=== PATIENT | female | born 1940 | race Caucasian/White ===

== ENCOUNTER 2017-10-20 16:35 | Emergency (ER) | payer MEDICARE, OTHER ==
[~2017-10-20] VITALS: Ht 157.5 cm; Wt 74.8 kg
[2017-10-20] MEDS ORDERED: PRAVASTATIN20 MG PO (17:29)
[2017-10-20] MEDS ORDERED: LEVOTHYROXIN125 MCG PO (17:29)
[2017-10-20] MEDS ORDERED: PRIMIDONE50 MG PO (17:29)
[2017-10-20] MEDS ORDERED: SERTRALINE HCL50 MG PO (17:30)
[2017-10-20] MEDS ORDERED: ZESTRIL40 MG PO (17:30)
[2017-10-20] MEDS ORDERED: FLOVENT DI50 MCG/BLI (17:32)
[2017-10-20] MEDS ORDERED: CLEAR EYE1 (17:33)
[2017-10-20 17:55] LABS: HEMATOCRIT 42.2 % (37.0-47.0); HEMOGLOBIN 13.6 g/dl (12.0-16.0); IMMATURE GRANULOCYTES 0.3 % (0.0-1.0); MEAN CELL VOLUME 91.9 fL CALC (80.0-100.0); MEAN CORPUSCULAR HGB 29.6 pG CALC (26.0-32.0); MEAN CORPUSCULAR HGB CONC 32.2 g/L CALC (32.0-36.0); NEUT# 3.49 thou/uL (2.00-7.15); RED BLOOD COUNT 4.59 mill/uL (4.20-5.60); RED CELL DISTRI WIDTH 14.2 % (11.5-15.5)
[2017-10-20 18:00] LABS: ALBUMIN 4.5 g/dL (3.2-5.0); BILIRUBIN, TOTAL 0.4 mg/dL (0.0-1.4); CREATININE 1.1 mg/dL (0.5-1.0); POTASSIUM 4.6 mmol/l (3.5-5.1); TOTAL PROTEIN 7.6 g/dL (6.3-8.2)
[2017-10-20 18:04] LABS: URINE BILIRUBIN - DIPSTICK NEGATIVE (NEGATIVE); URINE BLOOD DIPSTICK NEGATIVE (NEGATIVE); URINE COLOR YELLOW; URINE GLUCOSE - DIPSTICK NEGATIVE (NEGATIVE); URINE KETONE NEGATIVE (NEGATIVE); URINE LEUK ESTERASE NEGATIVE (NEGATIVE); URINE NITRITE - DIPSTICK NEGATIVE (Negative); URINE PROTEIN - DIPSTICK NEGATIVE (NEG-TRACE); URINE UROBILINOGEN - DIPSTICK 0.2 E.U./dL (0.2)
[2017-10-20 18:07] LABS: INFLUENZA A NONE DETECTED (NONE DETECT); INFLUENZA B NONE DETECTED (NONE DETECT)
[2017-10-20 18:08] LABS: URINE CLARITY CLEAR
[2017-10-20 20:40] VITALS: BP 167/63
== END 2017-10-20 20:40 | disposition home or self-care (01) ==
LOC: ED 16:35
PROVIDERS: Family Medicine
DX: J40 Bronchitis, not specified as acute or chronic (principal); R10.32 Left lower quadrant pain; R10.31 Right lower quadrant pain; G89.29 Other chronic pain; R05 Cough; R09.89 Other specified symptoms and signs involving the circulatory and respiratory systems